=== PATIENT | male | born 2000 | race Caucasian/White ===

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

== ENCOUNTER 2022-04-15 21:36 | Emergency (ER) | payer OTHER ==
[2022-04-15] MEDS ORDERED: Diphtheria,Pertussis(Acell),Tetanus Vaccine 0.5 ML Syringe IM ONE (22:10)
[2022-04-15] MEDS ORDERED: Lidocaine 1% 5 ML VIAL INJECT ONE (22:20)
== END 2022-04-16 | disposition home or self-care (01) ==
LOC: MW.ED 21:36
DX: S81.012A Laceration without foreign body, left knee, initial encounter (principal); Z23 Encounter for immunization; Z79.899 Other long term (current) drug therapy; W18.39XA Other fall on same level, initial encounter
CPT/HCPCS: 12001; 73562-26-RT; 73562-RT; 90471; 90715; 99282; 99283-25